=== PATIENT | female | born 1955 | race Two or more races ===

== ENCOUNTER 2024-08-24 10:43 | Emergency (ER) | payer SELFPAY ==
[2024-08-24 11:02] VITALS: BP 178/85; PULSE 85; RESP 18; TEMP 37.1; O2SAT 95
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
[2024-08-24] MEDS: ACETAMINOPHEN 500 MG TABLET 1000 MG PO (12:32)
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
== END 2024-08-24 14:10 | disposition home or self-care (01) ==
PROVIDERS: Emergency Provider Emergency Medicine; PCP Physician Assistant
DX: S20.02XA Contusion of left breast, initial encounter (principal); S22.32XA Fracture of one rib, left side, initial encounter for closed fracture; V89.2XXA Person injured in unspecified motor-vehicle accident, traffic, initial encounter
CPT/HCPCS: 71250; 74176; 99284; A9270

== ENCOUNTER 2025-04-30 17:02 | Emergency (ER) | payer MEDICARE, MEDICAID, SELFPAY ==
[2025-04-30 17:03] VITALS: PULSE 84; RESP 18; O2SAT 99; BMI 43.9
[2025-04-30 17:09] VITALS: BP 132/65; PULSE 69; RESP 18; TEMP 36.6; O2SAT 94
[2025-04-30 17:58] VITALS: BP 178/78; PULSE 73; RESP 18; TEMP 36.7; O2SAT 96
--- NOTE | 2025-04-30 18:07 | EDNOTE_ITS ---
ED Weakness RME/HPI General Chief complaint: Weakness Stated complaint: WEAKNESS Time Seen by Provider: 04/30/25 18:04 Arrival date/time: 04/30/25 17:02 RME / HPI RME / HPI Narrative: 69-year-old female patient with significant history of hypertension, came in for evaluation regarding vomiting diarrhea abdominal pain and anxietylike symptoms jittery, dizziness and generalized body weakness. This been ongoing for the last 3 days. Patient denies any cough denies any chest pain denies any other complaints. Patient did not notice any blood in the vomiting or any diarrhea. No medication was taken prior to ER visit. Related Data Previous Rx's ?Medication ?Instructions ?Recorded albuterol sulfate 90 mcg/actuation 2 puff inhalation Q 6H PRN 12/26/18 aerosol inhaler (Proventil HFA) shortness of breath #1 8 grams methylprednisolone 4 mg tablets in 4 mg PO UD DOSE PK #21 tabs 12/26/18 a dose pack (Medrol (Shahab)) mometasone 220 mcg/actuation(60 1 inh inhalation BID # 1 ea 12/26/18 doses) breath activated powder inhaler (Asmanex Twisthaler) hydrocodone 5 mg-acetaminophen 325 1 tab PO BID PRN pa in #10 tabs 08/24/24 mg tablet ibuprofen 800 mg tablet 800 mg PO TID PRN pain #30 t abs 08/24/24 lorazepam 0.5 mg tablet (Ativan) 0.5 mg PO BID PRN anx iety #20 tabs 04/30/25 lorazepam 0.5 mg tablet (Ativan) 0.5 mg PO BID PRN anx iety #20 tabs 04/30/25 ondansetron HCl 4 mg tablet 4 mg PO Q8H PRN nausea and 04/30/25 vomiting 5 days #20 tabs Allergies Allergy/AdvReac Type Severity Reaction Status Date / Time No Known Allergies Allergy Verified 08/24/24 10:44 Review of Systems Review of Systems Narrative Review of Systems: Review of system reviewed and within normal limits except mentioned in HPI ED Exam Narrative Physical exam: VITAL SIGNS: Reviewed. GENERAL APPEARANCE: Alert and interactive, follows commands, no acute distress, HEAD AND FACE: Non-traumatic. ENT: PERRL, pink conjunctivitis, eyelid no trauma, Mucous membrane moist. NECK: Supple, nontender, no nuchal rigidity. CHEST: No tenderness, no crepitus, no paradoxical movement, no retractions. LUNGS: Clear, well ventilated, symmetric, no rales, no wheezing, no ronchi, no stridor, good breath sounds bilaterally. HEART: Regular rate, regular rhythm, no murmur, no gallops. ABDOMEN: Soft, positive bowel sounds, nondistended, no guarding, upper abdominal tenderness, no rebound, no masses, RECTAL: Deferred. GENITAL: Deferred. NEUROLOGICAL: Gross motor function intact sensory function intact, Appropriate for age. MUSCULOSKELETAL: low back nontender, full range of motion. EXTREMITIES: Nontender, full range of motion. SKIN: Color pink, dry, no rash, no lacerations, no abrasions, no contusions. LYMPHATICS: Deferred. Course Quality Measures none Orders Category Date Time Status EKG (ED ONLY) *Do not use* NOW Care 04/30/25 18:16 Completed EKG (ED Only) Stat Exams 04/30/25 18:16 Draft XR chest 1V Stat Exams 04/30/25 18:16 Completed B-Type Natriuretic Peptide Stat Lab 04/30/25 18:35 Completed CBC Stat Lab 04/30/25 18:35 Completed Comprehensive Metabolic Panel Stat Lab 04/30/25 18:35 Completed Partial Thromboplastin Time Stat Lab 04/30/25 18:35 Completed Troponin I Stat Lab 04/30/25 18:35 Completed Urinalysis, C/S if Indicated Stat Lab 04/30/25 18:32 Completed LORazepam [Ativan] Med 04/30/25 18:17 Discontinued 0.5 mg PO X1 ONE Ondansetron Inj [Zofran Inj] Med 04/30/25 18:16 Discontinued 4 mg IVP X1 ONE Ringers Lactated 1000 ml [Lactated Ringers] 1,000 ml Med 04/30/25 18:16 Discontinued IV 999 mls/hr Vital Signs Vital signs: Vital Signs Temperature 97.9 F 04/30/25 17:09 Pulse Rate 69 04/30/25 17:09 Respiratory Rate 18 04/30/25 17:09 Blood Pressure 132/65 H 04/30/25 17:09 Pulse Oximetry (%) 94 L 04/30/25 17:09 Oxygen Delivery Method Room Air 04/30/25 17:09 Weakness MDM Narrative MDM Narrative:: 69-year-old female patient with significant history of hypertension, came in for evaluation regarding vomiting diarrhea abdominal pain and anxietylike symptoms jittery, dizziness and generalized body weakness. This been ongoing for the last 3 days. Patient denies any cough denies any chest pain denies any other complaints. Patient did not notice any blood in the vomiting or any diarrhea. No medication was taken prior to ER visit. Patient's laboratory workup today all came back unremarkable. Patient EKG showed sinus rhythm, ventricular rate of 71 bpm, no ST segment elevation or depression noted. I personally reviewed and interpreted the x-ray of this patient. There is no acute abnormalities found, no infiltrates no pneumothorax no hemothorax normal chest x-ray. Review of other structures was without significant abnormal findings also. I additionally reviewed the radiologist report and agree with the interpretation. Patient received IV fluids, Ativan, and Zofran with complete resolution of symptoms patient told me that she is ready go home. Patient data External records reviewed:: None Clinical information provided by:: patient Social determinants that could affect healthcare access:: none Patient has the following chronic illnesses:: History of anxiety How is presenting disease/condition affected by chronic disease/condition?: exacerbated by Evaluation data The following diagnostics were reviewed and interpreted by me:: lab results, ra diology exam(s) and EKG tracing(s) Lab and/or radiology exams considered but not ordered:: None Interpretation Summary: See results MDM Medications / Prescriptions Medications or Prescriptions considered but not ordered:: None Medication administrations:: Medication Administration History Discontinued Medications Lactated Ringer's (Lactated Ringers) 1,000 mls @ 999 mls/hr IV .Q1H1M ONE Stop: 04/30/25 19:16 Last Infusion: 04/30/25 19:38 Dose: Infused Documented By: Admin: 04/30/25 18:24 Dose: 999 mls/hr Documented By: EF Lorazepam (Lorazepam 0.5 Mg Tablet) 0.5 mg PO X1 ONE Stop: 04/30/25 18:18 Last Admin: 04/30/25 18:26 Dose: 0.5 mg Documented By: EF Ondansetron HCl (Ondansetron Inj 2 Mg/Ml Inj 2 Ml) 4 mg IVP X1 ONE; Protocol Stop: 04/30/25 18:17 Last Admin: 04/30/25 18:24 Dose: 4 mg Documented By: EF IV fluids, Ativan, Zofran Consultations Consultation(s) initiated? (list below): No Diagnosis Weakness Differential Diagnosis: anemia, sepsis and dehydration Most likely diagnosis given after review of the tests above:: Anxiety, Admission Indicated Admission indicated?: not indicated Admission Request Was there a request for admission?: No Disposition Plan Disposition Plan: Discharge Discharge Attestation Discharge Attestation: The patient and all family members were given an opportunity to ask questions and understood the discharge instructions. Discharge instructions specifically effects, indications for sooner follow up or return to the emergency department, and the expected course of current diagnosis. Patient condition: Stable Discharge Plan Plan Patient Disposition: HOME (Self Care) Discharge Disposition comment: Stable Prescriptions/Referrals Prescriptions/Med Rec: New lorazepam [Ativan] 0.5 mg tablet 0.5 mg PO BID PRN (Reason: anxiety) Qty: 20 0RF ondansetron HCl 4 mg tablet 4 mg PO Q8H PRN (Reason: nausea and vomiting) 5 Days Qty: 20 0RF lorazepam [Ativan] 0.5 mg tablet 0.5 mg PO BID PRN (Reason: anxiety) Qty: 20 0RF No Action methylprednisolone [Medrol (Shahab)] 4 mg tablets,dose pack 4 mg PO UD DOSE PK Qty: 21 0RF albuterol sulfate [Proventil HFA] 90 mcg/actuation HFA aerosol inhaler 2 puff INH Q6H PRN (Reason: shortness of breath) Qty: 18 0RF Asmanex Twisthaler 220 mcg (60 doses) aerosol powdr breath activated 1 inh INH BID Qty: 1 0RF ibuprofen 800 mg tablet 800 mg PO TID PRN (Reason: pain) Qty: 30 0RF hydrocodone-acetaminophen 5-325 mg tablet 1 tab PO BID MDD 10 PRN (Reason: pain) Qty: 10 0RF Referrals: Laura Cobos [Primary Care Provider] - In 1 week Problem List Clinical Impression: Anxiety, Gastroenteritis Patient/Caregiver Discharge Instructions Discharge Activity: activity as tolerated Education Materials: ED Anxiety Reaction Additional Instructions: Thank you for the opportunity for serving you today. You are stable for discharged . You are advised to: Follow-up with your PCP in 1 to 2 days Return to ED for worsening of symptoms Increase oral fluids Take medication as prescribed Print Language: Iraqi Stand Alone Forms: Sonja Award Info., Patient Portal Info Letter PA/ELECTRONIC DEVICE REPAIRER Supervising Physician PA/ELECTRONIC DEVICE REPAIRER Supervising Physician: MD Raine
--- NOTE | 2025-04-30 18:16 | EKG_ITS ---
[facility] Test Date: 2025-04-30 Pat Name: MELQUIADES OBRIEN Department: Room: - Gender: Female Stroke Coordinator: : 1955 Requested By: Dea Singletary Order Number: [id number] Reading MD: Dea Singletary Measurements Intervals [place] Rate: 71 P: 25 OK: 173 QRS: 27 QRSD: 100 T: 62 QT: 420 QTc: 457 Interpretive Statements SINUS RHYTHM No previous ECG available for comparison /store/S0/[id number]/[email or web address]/[id number].pdf
--- NOTE | 2025-04-30 18:16 | XR_ITS ---
Examination: AP chest single view Technique: AP portable semiupright chest single view Date and time: April 30, 2025 1850 hrs. Indications: Lower chest pain onset today. Findings: Moderate enlargement left ventricle. No pulmonary edema or pneumonia. Moderate osteopenia. Impression: Moderate enlargement left ventricle No pneumonia or pulmonary edema.
[2025-04-30] MEDS: ONDANSETRON INJ 2 MG/ML INJ 2 ML 4 MG IVP (18:24)
[2025-04-30] MEDS: RINGERS LACTATED 1000 ML 1,000 ML 999 ML IV (18:24)
[2025-04-30 18:36] LABS: Collection Type, Urine Clean Catch
[2025-04-30 18:39] LABS: Basophils # (Auto) 0.1 Thou/mm3 (0.0-0.2); Basophils % (Auto) 0 % (0-2.5); Eosinophils # (Auto) 0.1 Thou/mm3 (0.0-0.5); Eosinophils % (Auto) 0 % (0-10); Hematocrit 38.6 % (36.0-46.0); Hemoglobin 13.1 g/dL (12.0-16.0); Immature Granulocytes Auto 0.08 Thou/mm3 (0.00-0.00); Lymphocytes # (Auto) 1.9 Thou/mm3 (1.0-4.8); Lymphocytes % (Auto) 17 % (10-50); Mean Corpuscular HGB Conc 33.9 g/dl (31.0-37.0); Mean Corpuscular Hemoglobin 28.4 pg (25.0-35.0); Mean Corpuscular Volume 84 fL (80-100); Monocytes # (Auto) 0.6 Thou/mm3 (0.0-0.8); Monocytes % (Auto) 6 % (0-12); Neutrophils # (Auto) 8.7 Thou/mm3 (1.8-7.7); Neutrophils % (Auto) 76 % (37-80); Nucleated Red Blood Cell # 0.00 Thou/mm3 (0.00-0.00); Nucleated Red Blood Cell % 0 /100 WBC (0); Platelet Count 306 Thou/mm3 (140-440); RDW Standard Deviation 41.9 fL (36.4-46.3); Red Blood Count 4.61 Miln/mm3 (4.00-5.20); White Blood Count 11.5 Thou/mm3 (3.6-11.0)
[2025-04-30 18:47] LABS: Bilirubin,Urine Negative (Negative); Blood,Urine Negative (Negative); Clarity,Urine Clear (Clear/Hazy); Color,Urine Colorless (Lt Yel-Yel); Culture Indicated,Urine Not Indicated; Glucose, Urine Negative (Negative); Ketones,Urine Negative (Negative); Leukocyte Esterase,Urine Negative (Negative); Nitrite,Urine Negative (Negative); PH,Urine 6.5 (5.0-7.0); Protein,Urine Negative (Neg - Trace); RBC,Urine < 1 /hpf (0-3); Specific Gravity,Urine 1.007 (1.001-1.035); Squamous Epithelial Cell,Urine 4 /hpf (0-5); Urobilinogen,Urine Negative mg/dL (0.0-1.0); WBC,Urine 1 /hpf (0-5)
[2025-04-30 18:54] LABS: Partial Thromboplastin Time 24.8 Seconds (22.0-36.0)
[2025-04-30 18:56] LABS: Alanine Aminotransferase 16 U/L (10-49); Albumin, Serum 4.0 gm/dL (3.4-4.8); Albumin/Globulin Ratio 1.5 (1.2-2.2); Alkaline Phosphatase 66 U/L (46-116); Anion Gap 9 (7-16); Aspartate Amino Transferase 19 U/L (0-34); BUN/Creatinine Ratio 16 Ratio (12-20); Bilirubin,Total 0.3 mg/dL (0.3-1.2); Blood Urea Nitrogen 8 mg/dL (9-23); Calcium 9.1 mg/dL (8.3-10.6); Calcium (Corrected) 9.1 mg/dL (8.5-10.1); Carbon Dioxide 28.1 mMol/L (20.0-31.0); Chloride 103 mMol/L (98-107); Creatinine (Component) 0.5 mg/dL (0.6-1.3); Estimated Creatinine Clearance 123.4 mL/min (>60); Globulin 2.6 gm/dL (2.3-3.5); Glucose 98 mg/dL (74-106); Osmolality,Calculated 277 (275-295); Potassium 3.7 mMol/L (3.4-5.1); Sodium 140 mMol/L (136-145); Total Protein 6.6 gm/dL (5.7-8.2); Troponin I < 0.020 ng/mL (0.0-0.045); eGFR > 60 See Note
[2025-04-30 19:03] LABS: B-Type Natriuretic Peptide 66 pg/mL (0-100)
[2025-04-30 20:15] VITALS: BP 133/69; PULSE 76; RESP 16; O2SAT 95
[2025-04-30 22:10] VITALS: BP 179/98; PULSE 76; RESP 20; O2SAT 94
== END 2025-04-30 22:11 | disposition home or self-care (01) ==
PROVIDERS: Nurse Practitioner Family; Emergency Provider Emergency Medicine; PCP Physician Assistant
DX: K52.9 Noninfective gastroenteritis and colitis, unspecified (principal); F41.9 Anxiety disorder, unspecified; I10 Essential (primary) hypertension; R07.89 Other chest pain; R42 Dizziness and giddiness
CPT/HCPCS: 36415; 71045; 80053; 81001; 83880; 84484; 85025; 85730; 93005; 96361; 96374; 99283; J2405; J7120; A9270